=== PATIENT | male | born 1985 | race Caucasian/White ===

== ENCOUNTER 2019-04-27 18:41 | Emergency (ER) | payer SELFPAY ==
[~2019-04-27] VITALS: Ht 167.6 cm; Wt 70.5 kg
[~2019-04-27 18:41] MED LIST: LEVAHFA
[2019-04-27] MEDS ORDERED: BUPIVACAINE HCL/PF 0.25% 10 ML VIAL INJ ONE (23:15)
[2019-04-27] MEDS ORDERED: POVIDONE-IODINE 10% 120 ML SOLUTION TP ONE (23:15)
[2019-04-27] MEDS ORDERED: BACITRACIN 0.9 GM PACKET OINTMENT TP ONE (23:15)
[2019-04-28 00:44] VITALS: BP 136/74
== END 2019-04-28 01:25 | disposition home or self-care (01) ==
LOC: EMS 18:41
DX: S66.922A Laceration of unspecified muscle, fascia and tendon at wrist and hand level, left hand, initial encounter (principal); J45.909 Unspecified asthma, uncomplicated; W45.8XXA Other foreign body or object entering through skin, initial encounter; Y93.89 Activity, other specified; Y92.89 Other specified places as the place of occurrence of the external cause; Y99.8 Other external cause status
CPT/HCPCS: 12041; 73130; 96372; 99284; J0690; J3490; 29280

== ENCOUNTER 2021-05-26 19:43 | Emergency (ER) | payer MEDICAID ==
[~2021-05-26] VITALS: Ht 165.1 cm; Wt 86.4 kg
[2021-05-26] MEDS ORDERED: AMOX1TAB16 PO (20:55)
[2021-05-26 21:20] VITALS: BP 133/89
[2021-05-26] MEDS ORDERED: KETOROLAC TROMETHAMINE 60 MG/2 ML VIAL IM ONE (21:30)
[2021-05-26] MEDS ORDERED: AMOX TR/POT CLAV 875 MG/125 MG TABLET PO ONE (21:45)
== END 2021-05-26 23:07 | disposition home or self-care (01) ==
LOC: EMS 19:45
DX: S03.2XXA Dislocation of tooth, initial encounter (principal); K04.7 Periapical abscess without sinus; R22.0 Localized swelling, mass and lump, head; J45.909 Unspecified asthma, uncomplicated; F17.210 Nicotine dependence, cigarettes, uncomplicated; Z79.899 Other long term (current) drug therapy; X58.XXXA Exposure to other specified factors, initial encounter; Y93.89 Activity, other specified; Y92.89 Other specified places as the place of occurrence of the external cause; Y99.8 Other external cause status
CPT/HCPCS: 96372; 99283; J1885